=== PATIENT | male | born 1955 | race Caucasian/White ===

== ENCOUNTER 2024-12-11 06:08 | Day surgery (SDC) | payer MEDICARE, BC, SELFPAY ==
[2024-12-10] MEDS: LACTATED RINGERS 1000 ML 1,000 ML 100 ML IV (06:30)
[2024-12-10] MEDS: MIDAZOLAM HCL 1 MG/ML inj IVP (07:05)
[2024-12-10] MEDS: fentaNYL 100 MCG/2 ML inj IVP (07:05)
[2024-12-11] VITALS (20 sets, daily range): BP systolic 103–164; BP diastolic 66–89; PULSE 48–68; RESP 12–16; TEMP 36.1–37.2; O2SAT 97–100; BMI 25.1
[2024-12-11] MEDS: SODIUM CHLORIDE 0.9 % (FLUSH) 10 ML SYRINGE IVF (06:30)
[2024-12-11] MEDS: OXYCODONE (CR) 10 MG TAB.ER.12H PO (06:45)
[2024-12-11] MEDS: ACETAMINOPHEN 500 MG TABLET 1000 MG PO (06:45)
--- NOTE | 2024-12-11 07:01 | W.PM.H&PU ---
History & Physical Update History & Physical Update H&P Reviewed and patient assessed: No changes noted
--- NOTE | 2024-12-11 07:06 | SUR.PREOP ---
TIME?OUT:?0704 PT/RN/MDA?VERIFICATION?OF?SURGICAL?SITE,?PROCEDURE,?AND?CONSENT OBTAINED?PRIOR?TO?INVASIVE?PROCEDURE.
[2024-12-11] MEDS: TRANEXAMIC ACID 100 MG/ML INJ 1000 MG IV (07:40)
[2024-12-11] MEDS: CEFAZOLIN 2 GM in 0.9 % SODIUM CHLORIDE Mini-bag 100 ML IVPB (07:42)
--- NOTE | 2024-12-11 08:51 | PM.ORPRC ---
Procedure Note Date of procedure: 12/11/24 Procedure: PREOPERATIVE DIAGNOSIS: 1. Left hip osteoarthritis, severe, primary POSTOPERATIVE DIAGNOSIS: 1. Left hip osteoarthritis, severe, primary PROCEDURE: 1. Left total hip arthroplasty-anterior approach 2. 74927 - intraoperative fluoroscopy up to 1 hour. SURGEON: Santos Andre MD. WAFER FAB OPERATOR: David Pedro PA-C; GREG Carty - Of note, a skilled server service assistant was critical for this case to aid in patient positioning, tissue retraction, limb manipulation/positioning, dislocation/relocation, patient safety, and closure. ANESTHESIA: Spinal anesthetic EBL: 350 mL IMPLANTS: DePuy J&J uncemented total hip Brookesmith cup size 56, hole eliminator, +4 neutral liner Actis stem, high offset, size 6 +1.5 mm ceramic 36 mm head. COMPLICATIONS: None evident INDICATIONS: The patient is a pleasant 69-year-old male who has experienced severe left hip pain and difficulty bearing weight. Workup included x-rays which revealed severe osteoarthrosis in the hip. Given the deformity, the dysfunction, and the pain, as well as the failure of nonoperative management, recommendation was made for surgery. FINDINGS: Full-thickness chondral loss diffusely throughout the femoral head with flattening of the femoral head. Chondral wear in the acetabulum along with subchondral cystic changes. Perimeter osteophytes around the femoral head/neck junction and acetabulum. Large effusion upon entering the joint. DESCRIPTION OF PROCEDURE: Following a thorough discussion of risks, benefits, and alternatives consent was obtained and the left hip was marked. The patient was brought to the operating room and placed supine on the operating table. Induction of anesthesia was undertaken. 2 g IV Ancef and 1 g tranexamic acid was administered within 1 hr of incision preoperatively. Proper time-out was performed identifying proper patient, site, procedure. The operative extremity was prepped and draped in the appropriate sterile fashion using ChloraPrep after the patient was positioned on the W[place] table with head in neutral alignment and all bony prominences well padded. C-arm fluoroscopic imaging was utilized to confirm proper pelvis rotation and position, and to get true AP films of both the contralateral left, and the affected left hip. This is for comparison. A longitudinal incision was made starting approximately 1 cm distal to the ASIS, and 3-4 cm lateral. The incision was extended distally aiming toward the lateral border the patella. Sharp incision through skin and bovie cautery through the subcutaneous tissue allowed identification of the TFL fascia. This was sharply divided, and the fascia bluntly released from the muscle fibers as we dissected medial. Upon coming to the medial border, we were able to retract the TFL laterally, and penetrated the deeper fascia and identify the crossing circumflex vessels. These were ligated/cauterized. The rectus was elevated from the capsule, and retractors placed laterally and medially along the femoral neck to help with visualization of the capsule. We then performed an inverted T capsulotomy. The capsule was tagged for later repair. Retractors were placed inside the capsule. The femoral neck was visualized after releasing medially down to the lesser trochanter, along the saddle laterally, and up onto the acetabulum. The femoral neck cut was made in line with our preoperative templating. The head was removed in a single piece, and sized. We turned our attention to acetabular preparation. Initially, the labrum was resected from around the perimeter, the pulvinar was excised, allowing us to visualize the false wall. We started the reaming with a 43 mm reamer. This was medialized down to the true wall. We then enlarged our reamers sequentially up to one size less than the selected cup size. We trialed at the same size and found it to have an excellent fit. The selected cup was then opened, inserted, and impacted in line with the goal of 40-45? of abduction, and 20-25? of anteversion. This was confirmed on C-arm fluoroscopic imaging to be in the appropriate/goal position. Once the cup was placed we placed a hole eliminator and a liner consistent with preop planning. Attention was turned to the femoral preparation. The limb was extended, externally rotated, and adducted. The posteromedial capsule was released, as retractors were placed allowing excellent access to the proximal femur. Initially a box stamper was followed by canal finder followed by various broaches. We broached sequentially up to size noted above, found it to have excellent rotational control, and trialing various heads and necks, revealed that appropriate neck offset, and the above noted head size provided the greatest stability, and mu-ism of length, and offset. C-arm fluoroscopic imaging confirmed position of the stem, as well as leg lengths, which were compared with the pre procedure all fluoroscopic images. Trial implants were removed, the real femoral stem inserted, as was the ceramic head. After reducing, the leg was placed through range of motion and stability was confirmed anterior, posterior, and lateral. A 3 min Betadine soak was then performed, and thorough irrigation with normal saline followed. Closure of the capsule was performed with #1 PDS. Bleeding was confirmed to be controlled at this stage, and the TFL fascia was closed with #0 strata fix. Subcutaneous, and subcuticular closure was performed with 2-0 Vicryl and 4-0 Monocryl, respectively. Dressings were applied, and the patient was awoken from anesthesia and transferred the PACU in stable condition. A skilled server service assistant was critical for this case to aid in patient positioning, tissue retraction, proximal femur exposure, limb manipulation/positioning, dislocation/relocation, patient safety, and closure. PLAN: 1. Weight bear as tolerated operative extremity. 2. 23 hr perioperative antibiotics. 3. Ice. 4. PT/OT consults for ambulation assistance/mobility education. 5. Social work consult for discharge planning. 6. DVT prophylaxis with at SCDs and Xarelto x5 days followed by aspirin for a total of 1 month..
--- NOTE | 2024-12-11 09:03 | W.PM.NB ---
Nerve Block Nerve Block Time Seen by Provider: 07:09 Date Seen: 12/11/24 Type of block requested by surgeon for post-operative analgesia: DHIRAJ/LFCN Side: left Time out performed: Yes Verification of patient name: Yes Verification of date of : Yes Site marking: site marked Name of person performing procedure: Robert Continuous monitoring Was continuous monitoring of O2 sat, B/P, surveillance system monitor, recorded every 15 minutes?: Yes Procedure Checklist: sterile prep, needles and gloves Ultrasound guided. Images saved: Yes Medications given in 5ml increments after negative aspiration: Ropivicaine %: 0.5 mL: 30 Needle gauge: 20 Precedex (mcg): 25 Patient tolerated procedure well: Yes Additional comments: Needle noted below psoas tendon needle noted adjacent to LFCN Block Charges Block Charge (with Pro Fee): Other Periph Nerve Block Use of Ultrasound Machine for Block: Yes- US Guidance/pain block
--- NOTE | 2024-12-11 09:04 | W.ANESCHARGE ---
Anesthesia Charges Start Date/Time Anesthesia Start Date: 12/11/24 Anesthesia Start Time: 07:13 Stop Date/Time Anesthesia Stop Date: 12/11/24 Anesthesia Stop Time: 09:37 Summary Extremes of Age - Over 70 or under 1: MDA Coding CPT Codes CPT Codes: ANESTH HIP ARTHROPLASTY - 04775 ([id number]) P2 - PATIENT W/MILD SYST DISEASE, QK - LABOR SUPERVISOR 2-4 CNCRNT ANES PROC, QX - FINANCIAL PLANNING ADVISOR SVC W/ MD MED DIRECTION Additional Codes: Summary - Extremes of Age - Over 70 or under 1: MDA ([id number])
[2024-12-11] MEDS: LACTATED RINGERS 500 ML 500 ML 125 ML IV ×2 (09:30→10:30)
--- NOTE | 2024-12-11 09:52 | W.ANESCHARGE ---
Anesthesia Charges Start Date/Time Anesthesia Start Date: 12/11/24 Anesthesia Start Time: 07:13 Stop Date/Time Anesthesia Stop Date: 12/11/24 Anesthesia Stop Time: 09:37 Coding CPT Codes CPT Codes: ANESTH HIP ARTHROPLASTY - 81782 ([id number]) P1 - NORMAL HEALTHY PATIENT, QK - CITY ADMINISTRATOR 2-4 CNCRNT KASEY PROC, QX - CHIEF UNDERWRITER SVArleth W/ MED DIRECTION
== END 2024-12-11 14:25 | disposition home or self-care (01) ==
PROVIDERS: PCP Surgery; Visit Provider Orthopaedic Surgery Sports Medicine
PROC: (CPT 27130; principal; 2024-12-11 07:15)
DX: M16.12 Unilateral primary osteoarthritis, left hip (principal); G89.18 Other acute postprocedural pain
CPT/HCPCS: 27130; 01214; 36415; 64450; 73501; 76000; 76942; 86850; 86900; 86901; 97110; 97116; 97161; 97165; 97530; 99100; A9270; C1776; J0690; J1100; J2250; J2371; J2405; J2704; J2795; J3010; J7120

== ENCOUNTER 2025-01-16 13:00 | Outpatient (RCR) | payer MEDICARE, BC, SELFPAY ==
--- NOTE | 2024-12-09 13:41 | PT.OPEX ---
PT [place] [facility] PT [facility] [place] Outpatient Eval Start: 11/26/24 09:50 Freq: Status: Active Protocol: Document 12/09/24 10:11 [facility] (Rec: 12/09/24 11:03 [facility] [id number]) E-signed By Cuco Trammell, PT Physical Therapy Outpatient Evaluation Insurance Information Recert Due Date 03/03/25 Insurance Name Medicare B,Blue Cross/[employer] Medical Diagnosis Unilateral primary hip OA, left M16.12 Presence of left artificial hip joint (12/11/24) Z96.642 Treating Diagnosis Left hip pain M25.552 Left hip stiffness M25.652 Difficulty ambulating R26.[address] Santos Andre Subjective Preferred Name Sadi Subjective Digital mucous cyst R thumbnail - needs to be drained Pain Comments 8/10 L anterior hip Date of Last Physician Visit 11/20/24 Date of Surgery (If applicable) 12/11/24 Current Work Status Industrial Engineering Analyst Occupation Partially retired [employer], sons help out now Precautions Treatment Precautions/Contraindications avoid significant left hip extension, take small steps Weight Bearing Status Weight Bear as Tolerated Therapy Limitations/Systems Review Not Limited Objective Other/Pertinent Objective Left hip ROM: extension: lacking ~20 degrees due to pain, unable to lie flat in supine flexion: ~95 deg, painful Left hip strength: 2+/5, painful knee extension: 4/5 Right LE: >3+/5 throughout and ROM WNL UEs: >3+/5 throughout and ROM WNL Functional Test Performed & Score Ambulation: w/o AD, significant antalgic limp, left, with forward bend at hips, decreased L stance time and decreased L push off Transfers: I to modified I with all, performs slowly due to left hip pain SLS: 0 sec on left Stairs: Able to perform reciprocal stairs w/ railing R . W/step to pattern, he prefers to descend with R leg first despite recommendation to descend with bad/left leg Assessment Assessment/Impression 69 year old male presents with significant left hip pain, impaired left hip/LE ROM and strength, impaired transfers and ambulation due to advanced OA left hip joint. He is scheduled for L DAMARIS 12/11/24 ( in two days). Pain significantly worsened after going off his maloxicam in prep for surgery. Sadi is an excellent candidate for DAMARIS. He will benefit from skilled PT post-op. Primary Functional Limitations ambulation, stairs, prolonged standing, getting in/out of car, transitional movement, moving after prolonged sitting , sleep Plan of Care Rehabilitation Potential Excellent Physical Therapy Goals Pre-op goal: 1) Patient will be I with pre- op HEP and verbalize understanding of post-op rehab process and fall risk prevention. Goal met Functional goals TBD post op Coordination/Communication With Referral Source Treatment Plan/Direct Interventions Gait Training,Manual Therapy, Neuromuscular Re-ed,Self-Care/ Home Management,Therapeutic Activities,Therapeutic Exercises Frequency/Duration ~1x/week for 4-6 visits post- op Patient Will Be Discharged From Therapy Completion of LTG(s), Independent w/HEP, Independently Progressing Evaluation Billing Untimed Code Treatment Minutes 25 Complexity Low Certification Information Initial Certification Date 12/09/24 Ending Certification Date 03/03/25 Provider Signature Required Yes Provider Signature Shows Agreement With POC & Medical Necessity Physician NPI Number Write NPI# Here Physician Comment/Change : Physician Signature & Date Requested Please Sign/Date Here
== END 2025-02-10 15:58 | disposition home or self-care (01) ==
PROVIDERS: Visit Provider Orthopaedic Surgery Sports Medicine
DX: M16.12 Unilateral primary osteoarthritis, left hip (principal); Z96.642 Presence of left artificial hip joint; M25.552 Pain in left hip; M25.652 Stiffness of left hip, not elsewhere classified; R26.2 Difficulty in walking, not elsewhere classified; Z51.89 Encounter for other specified aftercare
CPT/HCPCS: 97110; 97112; 97161; 97164; 97530